=== PATIENT | female | born 1960 | race Caucasian/White ===

== ENCOUNTER 2017-06-22 13:05 | Day surgery (SDC) | payer BC ==
[~2017-06-22 13:05] MED LIST: RINGER'S SOLUTION,LACTATED 1,000 ML IV PRN
[2017-06-22] MEDS ORDERED: RINGER'S SOLUTION,LACTATED 1,000 ML IV ONE (15:25)
--- NOTE | 2017-06-22 16:12 | OR ---
Operative Report - Dictated Report Narrative: Date: 06/22/2017 Preoperative diagnosis: Screening for colon cancer Postoperative diagnosis: Pancolonic diverticulosis. Polyp at 35 cm. Procedure: Total colonoscopy with biopsy Staff surgeon: Elliott Trujillo MD Anesthesia: MAC per TIRE SORTER EBL: Minimal Specimens: Polyp at 35 cm Description of procedure: After informed consent and appropriate sedation the patient was placed in left lateral decubitus position inspection of the external anus reveals no abnormalities and sphincter tone is normal. A flexible fiberoptic video colonoscope was introduced and advanced under direct vision without difficulty to the cecum. The usual landmarks were identified. Preparation was excellent and excellent views were obtained. The findings were of pancolonic diverticulosis of a moderate degree. Otherwise there is a normal cecum, ascending colon, hepatic flexure, transverse colon, splenic flexure, descending colon, sigmoid colon other than a 4 mm polyp at 35 cm. This was biopsied with cold forceps and then destroyed with cautery. The rectum and retroflexed view were normal. The mucosal color, vasculature, and texture were normal throughout. No suspicious masses were seen. The patient tolerated the procedure well without apparent complications or discharge from the endoscopy suite in stable condition.
[2017-06-22 17:01] VITALS: BP 120/48
== END 2017-06-22 13:06 | disposition home or self-care (01) ==
LOC: AMB 13:05
PROVIDERS: ATTEND Specialist
PROC: 0DBN8ZX Excision of Sigmoid Colon, Via Natural or Artificial Opening Endoscopic, Diagnostic (ICD-10-PCS; principal; 2017-06-22 15:00)
DX: Z12.11 Encounter for screening for malignant neoplasm of colon (principal); K63.5 Polyp of colon; K57.30 Diverticulosis of large intestine without perforation or abscess without bleeding; I10 Essential (primary) hypertension; Z87.891 Personal history of nicotine dependence; Z68.37 Body mass index [BMI] 37.0-37.9, adult